=== PATIENT | female | born 1995 | race Caucasian/White ===

== ENCOUNTER 2017-03-31 22:05 | Emergency (ER) | payer MEDICAID, OTHER ==
[~2017-03-31] VITALS: Ht 162.6 cm; Wt 76.5 kg
[~2017-03-31 22:05] MED LIST: NO HOME MEDS; ONDA4TAB59 PO; PSEU120T55 PO
[2017-03-31 22:12] VITALS: BP 113/75
[2017-03-31 22:55] LABS: CLARITY,URINE Clear (Clear); COLOR,URINE Yellow (Yellow); GLUCOSE, URINE Negative (Neg); KETONES,URINE Negative (Neg); LEUKOCYTE ESTERASE ,URINE Moderate (Neg); NITRITES, URINE Negative (Neg); OCCULT BLOOD,URINE Negative (Neg); PROTEIN,URINE Negative (Neg)
[2017-03-31 23:28] LABS: BASOPHILS % (AUTO) 0.2 % (0-1); EOSINOPHILS # (AUTO) 0.3 X10'3 (0-0.9); EOSINOPHILS % (AUTO) 2.8 % (0-6); HEMATOCRIT 30.4 % (35.0-45.0); LYMPHOCYTES # (AUTO) 0.9 X10'3 (1.1-4.8); LYMPHOCYTES % (AUTO) 9.1 % (21-51); MEAN CORPUSCULAR HEMOGLOBIN 26.6 PG (27.0-31.0); MEAN CORPUSCULAR HGB CONC 32.9 % (33.0-36.5); MEAN PLATELET VOLUME 6.9 FL (7.4-10.4); MONOCYTES # (AUTO) 0.5 X10'3 (0-0.9); NEUTROPHILS # (AUTO) 8.4 X10'3 (1.8-7.7); NEUTROPHILS % (AUTO) 82.9 % (42-75); PLATELET COUNT 235 X10'3 (140-440); RED BLOOD COUNT 3.75 X10'6 (4.20-5.60); RED CELL DISTRIBUTION WIDTH 15.2 % (11.5-14.5); WHITE BLOOD COUNT 10.1 X10'3 (4.5-11.0)
[2017-03-31] MEDS ORDERED: HYDR-3965 PO (23:34)
[2017-03-31] MEDS ORDERED: ONDA4TAB12 PO (23:34)
[2017-03-31 23:46] LABS: ALANINE AMINOTRANSFERASE 48 U/L (12-78); ALBUMIN 3.8 G/DL (3.4-5.0); ALBUMIN/GLOBULIN RATIO 1.2 (1.1-1.5); ALKALINE PHOSPHATASE 111 IU/L (20-180); ANION GAP 7 (8-16); ASPARTATE AMINO TRANSFERASE 91 U/L (10-37); BILIRUBIN,TOTAL 0.5 MG/DL (0.1-1.0); BLOOD UREA NITROGEN 13 MG/DL (7-18); BUN/CREATININE RATIO 17.3 (6.6-38.0); CALCIUM 9.3 MG/DL (8.5-10.1); CHLORIDE 105 MMOL/L (99-107); CREATININE 0.75 MG/DL (0.40-0.90); GLUCOSE 99 MG/DL (70-104); LIPASE 191 U/L (73-393); POTASSIUM 3.8 MMOL/L (3.5-5.1); SODIUM 141 MMOL/L (135-145); TOTAL CARBON DIOXIDE 29.1 MMOL/L (24-32); TOTAL PROTEIN 7.1 G/DL (6.4-8.2); eGFR > 90 ML/MIN
[2017-03-31 23:48] LABS: UA COLLECTION TYPE CLN CATCH MIDSTREAM
[2017-03-31 23:55] LABS: BACTERIA,URINE 3+ /HPF (Neg); MUCUS STRANDS NONE SEEN /LPF (Neg); RBC,URINE NONE SEEN /HPF (0-2); SQUAMOUS EPITHELIAL CELL,UR MODERATE /LPF (FEW)
== END 2017-04-01 00:08 | disposition home or self-care (01) ==
LOC: ER 22:06
DX: K80.50 Calculus of bile duct without cholangitis or cholecystitis without obstruction (principal)
CPT/HCPCS: 36415; 76705; 80053; 81001; 83690; 85025; 87077; 87088; 87186; 99285

== ENCOUNTER 2019-05-23 19:15 | Emergency (ER) | payer SELFPAY ==
[~2019-05-23] VITALS: Ht 162.6 cm; Wt 72.7 kg
[~2019-05-23 19:15] MED LIST changes: +ONDA4TAB12 PO
[2019-05-23 19:43] VITALS: BP 118/73
[2019-05-23] MEDS ORDERED: PENI500T2 PO (19:58)
[2019-05-23] MEDS ORDERED: penicillin V potassium 500mg tablet PO ONE (20:00)
== END 2019-05-23 20:10 | disposition home or self-care (01) ==
LOC: ER 19:16
DX: J02.0 Streptococcal pharyngitis (principal)
CPT/HCPCS: 99283

== ENCOUNTER 2021-01-17 09:09 | Emergency (ER) | payer MEDICAID ==
[~2021-01-17] VITALS: Ht 165.1 cm; Wt 59.0 kg
[2021-01-17 09:25] VITALS: BP 169/76
[2021-01-17] MEDS ORDERED: ESCI-10 PO (09:57)
== END 2021-01-17 10:12 | disposition home or self-care (01) ==
LOC: ER 09:09
DX: O99.345 Other mental disorders complicating the puerperium (principal); F32.9 Major depressive disorder, single episode, unspecified; F90.9 Attention-deficit hyperactivity disorder, unspecified type; Z79.899 Other long term (current) drug therapy
CPT/HCPCS: 99281

== ENCOUNTER 2023-08-17 12:57 | Emergency (ER) | payer MEDICAID ==
[~2023-08-17] VITALS: Ht 160 cm; Wt 61.0 kg
[~2023-08-17 12:57] MED LIST changes: +ESCI-10 PO
[2023-08-17 12:59] VITALS: BP 106/64; PULSE 95; RESP 16; TEMP 98.2; O2SAT 99
== END 2023-08-17 19:17 | disposition home or self-care (01) ==
LOC: ER 12:58
DX: S83.92XA Sprain of unspecified site of left knee, initial encounter (principal); M25.562 Pain in left knee; M25.462 Effusion, left knee; Z79.899 Other long term (current) drug therapy; W19.XXXA Unspecified fall, initial encounter; Y93.89 Activity, other specified; Y92.89 Other specified places as the place of occurrence of the external cause; Y99.8 Other external cause status
CPT/HCPCS: 73564; 73700; 99284

== ENCOUNTER 2024-07-22 11:52 | Emergency (ER) | payer MEDICAID ==
[~2024-07-22] VITALS: Ht 162.6 cm; Wt 57.9 kg
[~2024-07-22 11:52] MED LIST changes: +ONDA-243 PO; -ONDA4TAB12 PO
[2024-07-22 11:56] VITALS: BP 133/80; PULSE 91; RESP 18; O2SAT 100
[2024-07-22] MEDS ORDERED: HYDR-3686 PO (12:36)
[2024-07-22] MEDS ORDERED: PERM60CR27 TP (12:36)
[2024-07-22 12:41] VITALS: TEMP 98
== END 2024-07-22 12:43 | disposition home or self-care (01) ==
LOC: ER 11:52
DX: B86 Scabies (principal)
CPT/HCPCS: 99283

== ENCOUNTER 2025-02-22 16:57 | Emergency (ER) | payer MEDICAID ==
[~2025-02-22] VITALS: Ht 162.6 cm; Wt 55.6 kg
[~2025-02-22 16:57] MED LIST changes: +HYDR-3686 PO
[2025-02-22 17:01] VITALS: BP 121/76; PULSE 74; RESP 18; TEMP 97.2; O2SAT 100
--- NOTE | 2025-02-22 17:10 | Physician Documentation ---
History of Present Illness ~ Chief Complaint: Urinary Symptoms Stated Complaint: UTI Time Seen by MD: 16:59 Primary Medical Doctor: None HPI 29-year-old female who presents to the emergency department with complaint of suspected urinary tract infection. Denies risk of your or STI. Reports symptoms began today. Increased frequency with scant urine and dysuria. No flank pain, fever or nausea or vomiting. Medication Reconciliation Allergies: Coded Allergies: No Known Allergies (Unverified , 02/22/25) Scheduled Escitalopram Oxalate (Lexapro), 1 TAB PO DAILY Ondansetron Hcl (Ondansetron Hcl), 4 MG PO Q8H PRN N/V Pseudoephedrine Hcl (Sudafed 12-Hour), 1 TABLET PO BID Sulfamethoxazole/Trimethoprim (Bactrim Ds Tablet), 1 TAB PO Q12H Scheduled PRN Hydroxyzine Hcl (Atarax), 1 TAB PO Q8H PRN for itching ONDANSETRON ODT 4mg tablet (Ondansetron Odt), 1 TABLET PO Q6H PRN for nausea/vomiting Phenazopyridine Hcl (Pyridium tablet), 2 TAB PO Q8H PRN for pain Miscellaneous Medications Home Med List (No Home Medications), (Reported) Past Medical History Past Medical History: No Pertinent History Past Surgical History: no surgical history Alcohol Use: None Drug Use: none Lives In: Home Occupation: student Review of Systems All Other Systems at this time: Reviewed and Negative Constitutional: Reports: see HPI Genitourinary: Reports: burning, dysuria, frequency Physical Exam Vital Signs: RN Vital Signs have been reviewed: Yes, Temperature: 97.2, Source: Temporal, Heart Rate: 74, Respiratory Rate: 18, BP: 121/76, Pulse Oximetry: 100, Weight: 55.600 Oxygen Flow Rate: 0 General Appearance: alert, WD/WN, no apparent distress EENT: PERRL/EOMI Neck: normal inspection Respiratory: no respiratory distress Chest: no accessory muscle use Neurologic: oriented x4 Psychiatric: normal mood/affect Skin: normal color Progress Results/Orders Results/Orders Orders - CHILANGO MORILLO PAC Urinalysis, Cult If Indicated (02/22/25 17:05) Vital Signs 02/22/25 17:01 Temp 97.2 Pulse 74 Resp 18 B/P (MAP) 121/76 Pulse Ox 100 O2 Flow Rate 0 Medical Decision Making Additional information obtaine: N/A Findings 29-year-old female with simple uncomplicated UTI. Empiric antibiotic Rx provided of Bactrim DS. Urinalysis and culture pending. Safely discharged from the emergency department without clinical suspicion of Pyelonephritis. Urinary Diff Dx:Considerations: Include: Urinary Obstruction, Urolithiasis, Urinary retention, UTI Genital Diff Dx:Considerations: Include: Other (Non contributory) Departure Disposition: HOME / SELF CARE / HOMELESS Impression: Primary Impression: Acute urinary tract infection Condition: Stable Discharge Instructions: Urinary Tract Infection, Adult Additional Instructions: Please obtain and begin prescription as directed. Please follow up with the primary care physician in 5-7 days for test of cure. Return to the emergency department the interim if symptoms worsen. Thank you for visiting [facility] Emergency Department. Referrals: NO PRIMARY CARE PROVIDER (PCP) Prescriptions Sulfamethoxazole/Trimethoprim (Bactrim Ds Tablet) 800 Mg-160 Mg Tablet 1 TAB PO Q12H for 7 Days, #14 TAB Prov: CHILANGO MORILLO 02/22/25 Phenazopyridine Hcl (Pyridium tablet) 100 Mg Tablet 2 TAB PO Q8H PRN for pain, #12 TAB Prov: CHILANGO MORILLO 02/22/25 Education Educated: Patient Educated regarding: diagnosis, treatment, prognosis, need for follow up Signature Scribe Signature: . Attestation: . CHILANGO MORILLO Feb 22, 2025 17:10
[2025-02-22] MEDS ORDERED: SULF1TAB49 PO (17:12)
[2025-02-22] MEDS ORDERED: PHEN-786 PO (17:12)
[2025-02-22 17:55] LABS: LEUKOCYTE ESTERASE ,URINE TRACE (Neg); NITRITES, URINE NEGATIVE (Neg); OCCULT BLOOD,URINE SMALL (Neg)
[2025-02-22 17:56] LABS: UA COLLECTION TYPE CLN CATCH MIDSTREAM
[2025-02-22 18:02] LABS: MUCUS STRANDS MODERATE /LPF (Neg); SQUAMOUS EPITHELIAL CELL,UR MANY /LPF (FEW); WBC CLUMPS,URINE MODERATE /HPF (NEGATIVE)
== END 2025-02-22 17:22 | disposition home or self-care (01) ==
LOC: ER 16:57
DX: N39.0 Urinary tract infection, site not specified (principal); Z79.899 Other long term (current) drug therapy
CPT/HCPCS: 81001; 99283